=== PATIENT | male | born 1960 | race Caucasian/White ===

== ENCOUNTER → 2016-12-24 | Outpatient (CLI) | payer BC ==
[~2016-12-24] MED LIST: DAPA5TAB PO; GABA-336 PO; GEMF600T3 PO; METF500T4 PO; PRAV20TA4 PO; [UNRECOGNIZED DRUG - CODE] PO
[2016-12-24 15:35] LABS: BASOPHILS % (AUTO) 0.3 % (0-2); EOSINOPHILS # (AUTO) 0.1 T/MM3 (0-0.5); EOSINOPHILS % (AUTO) 0.9 % (0-4); HCT - HEMATOCRIT 43.4 % (41-53); HGB - HEMOGLOBIN 14.7 GM/DL (13.5-17.5); IMMATURE GRANULOCYTE # (AUTO) 0.01 T/MM3 (0.00-0.03); IMMATURE GRANULOCYTE % (AUTO) 0.1 % (0.0-0.5); MEAN CORPUSCULAR HGB 28.6 UUG (26-34); MEAN CORPUSCULAR HGB CONC(MCHC 33.9 GM/DL (31-37); MEAN CORPUSCULAR VOLUME 84.4 UM3 (80-100); MEAN PLATELET VOLUME 10.1 UM3 (9.4-12.4); MONOCYTES # (AUTO) 0.6 T/MM3 (0-0.8); MONOCYTES % (AUTO) 7.8 % (0-9.0); NEUTROPHILS #(AUTO)-ABSOLUTE 4.9 T/MM3 (1.8-7.7); NEUTROPHILS % (AUTO) 64.9 % (33-66); RED BLOOD COUNT 5.14 M/MM3 (4.50-5.90); WBC - WHITE BLOOD COUNT 7.5 T/MM3 (4.5-11.0)
[2016-12-24 15:45] LABS: ALBUMIN 4.8 G/DL (3.5-5.0); ALBUMIN/GLOBULIN RATIO 2.1 RATIO (1.1-2.2); ALKALINE PHOSPHATASE 90 U/L (38-126); ALT (SGPT) 50 U/L (21-72); ANION GAP 16 MEQ/L (5-15); AST (SGOT) 30 U/L (17-59); BUN/CREATININE RATIO 20 RATIO (6-26); CALCIUM 9.6 MG/DL (8.4-10.2); CHLORIDE 108 MEQ/L (98-107); CO2 - CARBON DIOXIDE 23 MEQ/L (22-30); CREATININE 0.9 MG/DL (0.8-1.5); GLOMERULAR FILTRATION RATE 87; GLUCOSE 135 MG/DL (75-110); LDH 394 U/L (313-618); POTASSIUM 4.1 MEQ/L (3.6-5); SODIUM 147 MEQ/L (134-144); TOTAL PROTEIN 7.1 G/DL (6.3-8.2)
[2016-12-26 02:55] LABS: FERRITIN 13.9 NG/ML (18-464)
== END ==
LOC: LAB 15:22
PROVIDERS: ATTEND Internal Medicine Hematology & Oncology
DX: E83.110 Hereditary hemochromatosis (principal)
CPT/HCPCS: 36415; 80053; 82728; 83540; 83550; 83615; 85025